=== PATIENT | male | born 1950 | race Caucasian/White ===

== ENCOUNTER 2024-07-30 09:39 | Emergency (ER) | payer OTHER ==
[~2024-07-30] VITALS: Ht 180.3 cm; Wt 101.3 kg
[~2024-07-30 09:39] MED LIST: ATEN100T PO; BENA40TA71 PO; DIGO0.2570 PO; DIPH2.5T73 OR; FURO20TA3 PO; METF-370 OR
[2024-07-30] MEDS: SODIUM CHLORIDE 0.9% 1,000 ML IV ONE (10:39)
--- NOTE | 2024-07-30 10:47 | ED.PDOC ---
General HPI Comments 73Y M with PMHx DM, HTN, and BPH presents to ED for chief complaint testicle pain x3days with swelling. Pt states symptoms originally began on left testicle but now the right testicle is also tender and swollen. Pt denies all urinary symptoms, fever, and chills. Pt has previously self-catheterized himself due to inability to void urine. Pt had similar symptoms 20yrs ago. Pt is being f/u by PCP at [facility], but is not being seen by a urologist. Chief Complaint: Testicle Pain Time Seen by MD: 10:17 Primary Care Provider: SULAIMAN WITH SPRECKELS Reviewed notes: Nurses Notes, Medications, Allergies Allergies: Coded Allergies: NO KNOWN ALLERGIES (Unverified , 07/01/12) Home Meds Reported Medications Diphenoxylate W/ Atropine (Lomotil) 2.5 Mg Tab, 2.5 MG OR Q6HP 07/01/12 Metformin Hydrochloride (Metformin Hcl) 500 Mg Tab, 500 MG OR DAILY 07/01/12 Digoxin (Digoxin) 0.25 Mg Tab, 0.25 MG PO DAILY 07/01/12 Atenolol (Atenolol) 100 Mg Tab, 100 MG PO DAILY 07/01/12 Furosemide (Furosemide) 20 Mg Tab, 20 MG PO DAILY 07/01/12 Benazepril Hcl (Benazepril Hcl) 40 Mg Tab, 40 MG PO DAILY 07/01/12 Information Source: Patient Mode of Arrival: Ambulatory Severity: Mild Inability to void: None Timing: Days Duration: Since onset Onset: Spontaneous Symptoms: None History of: BPH Location male: R Scrotum, L Scrotum Penile discharge: None Modifying factors: None associated signs and symptoms: Other Past Medical History PAST MEDICAL HISTORY: AFIB, DM, HTN Past Medical History (Other): BPH Surgical History: Denies all surgeries Family History Family History: Unknown Social History Smoker: Non-Smoker Alcohol: Occasionally Drugs: Denies Drug Use Lives In: Home Constitutional: denies: chills, diaphoresis, fatigue, fever, malaise, sweats, weakness, others EENTM: denies: blurred vision, double vision, ear bleeding, ear discharge, ear drainage, ear pain, ear ringing, eye pain, eye redness, hearing loss, mouth pain, mouth swelling, nasal discharge, nose bleeding, nose congestion, nose pain, photophobia, tearing, throat pain, throat swelling, voice changes, others Respiratory: denies: cough, hemoptysis, orthopnea, SOB at rest, shortness of breath, SOB with excertion, stridor, wheezing, others Cardiovascular: denies: chest pain, dizzy spells, diaphoresis, Dyspnea on exertion, edema, irregular heart beat, left arm pain, lightheadedness, palpitations, PND, syncope, others Gastrointestinal: denies: abdomen distended, abdominal pain, blood streaked bowels, constipated, diarrhea, dysphagia, difficulty swallowing, hematemesis, melena, nausea, poor appetite, poor fluid intake, rectal bleeding, rectal pain, vomiting, others Genitourinary: reports: testicle pain, testicle swelling; denies: burning, dysuria, flank pain, frequency, hematuria, incontinence, penile discharge, penile sore, pain, urgency, others Neurological: denies: dizziness, fainting, headache, left sided numbness, left sided weakness, numbness, paresthesia, pre-existing deficit, right sided numbness, right sided weakness, seizure, speech problems, tingling, tremors, weakness, others Musculoskeletal: denies: back pain, gout, joint pain, joint swelling, muscle pain, muscle stiffness, neck pain, others Integumetry: denies: bruises, change in color, change in hair/nails, dryness, laceration, lesions, lumps, rash, wounds, others Allergic/Immunocompromised: denies: Difficulty Healing, Frequent Infections, Hives, Itching, others Hematologic/Lymphatic: denies: anemia, blood clots, easy bleeding, easy bruising, swollen glands, others Endocrine: denies: excessive hunger, excessive sweating, excessive thirst, excessive urination, flushing, intolerance to cold, intolerance to heat, unexplained weight gain, unexplained weight loss, others Psychiatric: denies: anxiety, bipolar disorder, depression, hopeless, panic disorder, schizophrenia, sleepless, suicidal, others All Other Systems: Reviewed and Negative Physical Exam General Appearance: Moderate Distress, Obese HEENT: Normal ENT Inspection, PERRL/EOMI, Pharynx Normal, TMs Normal Neck: Full Range of Motion, Non-Tender, Normal, Normal Inspection Respiratory: Chest Non-Tender, Lungs Clear, No Accessory Muscle Use, No Res piratory Distress, Normal Breath Sounds Cardiovascular: No Edema, No JVD, No Murmur, No Gallop, Normal Peripheral Pulses, Regular Rate/Rhythm Breast Exam: Deferred Gastrointestinal: No Organomegaly, Non Tender, No Pulsatile Mass, Normal Bowel Sounds, Soft, Other (Protuberant abdomen) Genitalia: Epididymis, Scrotum, Testicle, Other (Swollen red inflamed indurated mostly left side) Pelvic: Deferred Rectal: Deferred Extremities: No calf tenderness, Normal capillary refill, Normal inspection, Normal range of motion, Non-tender, No pedal edema Musculoskeletal : Apperance: Normal Neurologic: Alert, harvest field ticketer II-XII nml as Tested, Motor Weakness, Normal Affect, Normal Mood, No Sensory Deficits, Other (Difficulty to stand up) Cerebellar Function: NOT DONE Reflexes: NOT DONE Skin: Dry, Normal Color, Warm Peripheral Pulses: 1+ carotid (R), 1+ carotid (L) Lymphatic: No Adenopathy Was a procedure done? Was a procedure done?: No Differential Diagnosis Kidney stone (Female): N/A Kidney stone (Male): Pyelonephritis, Urolithiasis, Urinary tract infection Penile/Scrotal: Epidiymitis, Prostatitis, UTI, Hydrocele Urinary Problem (Male): Epididymitis, Prostatitis, Plelonephritis, UTI, Other (Orchitis) Urinary Problem (Female): N/A X-Ray, Labs, Meds, VS Vital Signs Date Time Temp Pulse Resp B/P (MAP) Pulse Ox O2 Delivery O2 Flow Rate FiO2 07/30/24 17:32 98.3 73 18 105/67 (80) 97 98.3 07/30/24 15:07 63 18 106/62 (77) 98 07/30/24 13:09 61 17 124/74 (91) 97 07/30/24 11:07 98.5 87 17 121/49 (73) 97 98.5 07/30/24 10:08 102 18 97 Room Air 07/30/24 10:08 98.8 102 18 124/77 (93) 97 98.8 07/30/24 09:48 99.2 99 16 138/57 (84) 97 Lab Test 07/30/24 16:12 07/30/24 11:13 Range/Units Urine Color Light-orange Yellow Urine Clarity Ex.turbid Clear Urine pH 7.0 5.0-9.0 Urine Specific [place] 1.017 1.001-1.035 Urine Protein 2+ H Negative Urine Ketones Negative Negative Urine Blood 2+ H Negative /uL Urine Nitrite Negative Negative Urine Bilirubin Negative Negative Urine Urobilinogen Normal Negative mg/dL Urine Leukocyte Esterase 3+ Negative /uL Urine RBC 179 0 - 3 /hpf Urine WBC 395 0 - 3 /hpf Urine WBC Clumps Present None Seen /hpf Urine Squamous Epithelial Cells Few <5 /hpf Urine Bacteria Few H None Seen /hpf Urine Mucus Few None Seen Urine Glucose Normal Normal mg/dL White Blood Count 10.9 H 4.4-10.8 10^3/uL Red Blood Count 4.02 L 4.5-5.90 10^6/uL Hemoglobin 12.0 L 13.5-17.5 g/dL Hematocrit 36.7 L 41.0-53.0 % Mean Corpuscular Volume 91.2 80.0-100.0 fL Mean Corpuscular Hemoglobin 29.9 28.0-32.0 pg Mean Corpuscular Hemoglobin Concent 32.8 32.0-36.0 g/dL Red Cell Distribution Width 16.1 H 11.8-14.3 % Platelet Count 155 140-450 10^3/uL Mean Platelet Volume 8.6 6.9-10.8 fL Neutrophils (%) (Auto) 85.8 H 37.0-80.0 % Lymphocytes (%) (Auto) 5.1 L 10.0-50.0 % Monocytes (%) (Auto) 8.0 0.0-12.0 % Eosinophils (%) (Auto) 0.5 0.0-7.0 % Basophils (%) (Auto) 0.6 0.0-2.0 % Neutrophils # (Auto) 9.3 H 1.6-8.6 10 ^3/uL Lymphocytes # (Auto) 0.6 0.4-5.4 10 ^3/uL Monocytes # (Auto) 0.9 0-1.3 10 ^3/uL Eosinophils # (Auto) 0.1 0-0.8 10 ^3/uL Basophils # (Auto) 0.1 0-0.2 10 ^3/uL Nucleated Red Blood Cells 0.1 % Sodium Level 140 136-145 mmol/L Potassium Level 3.7 3.5-5.1 mmol/L Chloride Level 106 98-107 mmol/L Carbon Dioxide Level 26 20-31 mmol/L Anion Gap 8 5-15 Blood Urea Nitrogen 16 9-23 mg/dL Creatinine 0.94 0.700-1.30 mg/dL Glomerular Filtration Rate Calc 87 >90 mL/min BUN/Creatinine Ratio 17.0 10.0-20.0 Serum Glucose 131 H 74-106 mg/dL Calcium Level 10.2 8.7-10.4 mg/dL Magnesium Level 1.6 1.6-2.6 mg/dL Total Bilirubin 2.1 H 0.2-1.0 mg/dL Aspartate Amino Transferase (AST) 9 L 13-40 U/L Alanine Aminotransferase (ALT) 9 7-40 U/L Alkaline Phosphatase 77 46-116 U/L Total Protein 6.8 5.7-8.2 g/dL Albumin 4.2 3.2-4.8 g/dL Lipase 27 12-53 U/L Current Medications Medications (Trade) Dose Ordered Sig/Tiara Route Start Time Stop Time Status Last Admin Sodium Chloride 500 ml @ 500 mls/hr Q1H ONCE IVB 07/30/24 10:30 07/30/24 11:29 DC 07/30/24 11:09 Ketorolac Tromethamine (Toradol Injection) 30 mg ONCE ONCE IV 07/30/24 12:15 07/30/24 12:16 DC 07/30/24 12:40 Ceftriaxone Sodium 50 ml @ 100 mls/hr ONCE ONCE IV 07/30/24 12:15 07/30/24 12:44 DC 07/30/24 12:40 [place] [id number] Ph: [phone] DIAGNOSTIC IMAGING Diagnostic Imaging Report : [id number] Signed PATIENT: SKYE BATES ACCT: [id number] UNIT: [id number] : 1950 LOC: ER ROOM / BED: / AGE / SEX: 73 / M ADM STATUS: REG ER SERVICE 1026 ORDERING PHYSICIAN: CYNTHIA CERDA MD PROCEDURE(s): TESUS - TESTICULAR ULTRASOUND REASON: Orchitis epididymitis ORDER NUMBER(s): [id number], ACCESSION NUMBER(s): [id number] ULTRASOUND OF SCROTUM AND CONTENTS. INDICATION: Orchitis epididymitis COMPARISON: None TECHNIQUE: Multiple real-time grayscale sonographic and color and duplex Doppler images of the scrotum and its contents were obtained. FINDINGS: The right testicle measures 4.3 x 3.3 x 3.2 cm. The left testicle measures 4.3 x 3.3 x 3.2 cm. Both testicles demonstrate homogeneous echotexture without evidence of focal lesions. The right epididymis measures 1.0 cm. The left epididymis measures 1.5 cm. Left epididymal head cyst measures 0.5 cm. Subsequent color and duplex Doppler interrogation of the testes demonstrated symmetric normal vascular flow to both testicles. Increased vascularity to the left testicle and left epididymis. Septated left hydrocele. Trace right hydrocele. Diffuse scrotal wall thickening. IMPRESSION: Findings are suggestive of left orchitis/ epididymitis. Probably infected small left hydrocele. ATED BY: MARK MEYER MD DICTATED DATE/TIME: 07/30/24 1133 SIGNED BY: MARK MEYER MD SIGNED DATE/TIME: 07/30/24 1133 CC: X-Ray, Labs, Meds, VS Comment Course in emergency department eventful patient came in complaining of swollen testicles with pain eight painful is self cauterization Blood pressure 138/57 CBC [id number] with 85.8% neutrophils H&H 12 and 36 CMP blood sugar is 131 Magnesium 1.6 Bilirubin 2.1 Lipase 27 Urine pending The ultrasound shows orchitis and epididymitis and small hydrocele Patient will be discharged home Dr. 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, managed as type 2 Disposition: 01 HOME / SELF CARE / HOMELESS Condition: Fair Additional Instructions: Push fluids local heat mostly in the area of the swelling and you need to follow up with your PCP and your urologist Your doctor has been consulted e-Prescriptions Cefdinir (Cefdinir) 300 Mg Cap 1 CAP PO BID for 10 Days, #20 CAP Prov: CYNTHIA ECRDA MD 07/30/24 Diclofenac Potassium (Diclofenac Potassium) 50 Mg Tab 1 TAB PO TIDP for 5 Days, #15 TAB Prov: CYNTHIA CERDA MD 07/30/24 Discharged With: Self Critical Care Note Critical Care Time?: No Stability Stability form required: No Heart Score Heart Score: Heart Score Response (Comments) Value History N/A 0 EKG N/A 0 Age >65 2 Risk Factors 1 or 2 risk factors 1 Troponin N/A 0 Total 3 I personally scribed for CYNTHIA CERDA MD ([email or web address]) on 07/30/24 at 10:47. Electronically submitted by Faye Brice ([email or web address]). I personally scribed for CYNTHIA CERDA MD ([email or web address]) on 07/30/24 at 11:39. Electronically submitted by Faye Brice ([email or web address]). CYNTHIA CERDA MD Jul 30, 2024 10:47
[2024-07-30] MEDS: SODIUM CHLORIDE 0.9% 500 ML IVB ONE (11:09)
[2024-07-30 11:33] LABS: Basophils # (auto) 0.1 10 ^3/uL (0-0.2); Basophils % (auto) 0.6 % (0.0-2.0); Eosinophils # (auto) 0.1 10 ^3/uL (0-0.8); Eosinophils % (auto) 0.5 % (0.0-7.0); Hematocrit 36.7 % (41.0-53.0); Lymphocytes # (auto) 0.6 10 ^3/uL (0.4-5.4); Lymphocytes % (auto) 5.1 % (10.0-50.0); Mean Corpuscular Hemoglobin 29.9 pg (28.0-32.0); Mean Corpuscular Hgb Conc. 32.8 g/dL (32.0-36.0); Mean Corpuscular Volume 91.2 fL (80.0-100.0); Monocytes # (auto) 0.9 10 ^3/uL (0-1.3); Neutrophils # (auto) 9.3 10 ^3/uL (1.6-8.6); Neutrophils % (auto) 85.8 % (37.0-80.0); Nucleated Red Blood Cells % 0.1 %; Platelet Count (auto) 155 10^3/uL (140-450); Red Blood Cells 4.02 10^6/uL (4.5-5.90); Red Cell Distribution Width 16.1 % (11.8-14.3); White Blood Cell 10.9 10^3/uL (4.4-10.8)
--- NOTE | 2024-07-30 11:37 | DVH ---
ULTRASOUND OF SCROTUM AND CONTENTS. INDICATION: Orchitis epididymitis COMPARISON: None TECHNIQUE: Multiple real-time grayscale sonographic and color and duplex Doppler images of the scrotu m and its contents were obtained. FINDINGS: The right testicle measures 4.3 x 3.3 x 3.2 cm. The left testicle measures 4.3 x 3.3 x 3.2 cm. Both testicles demonstrate homogeneous echotexture without evidence of focal lesions. The right epididymis measures 1.0 cm. The left epididymis measures 1.5 cm. Left epididymal head cyst measures 0.5 cm. Subsequent color and duplex Doppler interrogation of the testes demonstrated symmetric normal vascula r flow to both testicles. Increased vascularity to the left testicle and left epididymis. Septated left hydrocele. Trace right hydrocele. Diffuse scrotal wall thickening. IMPRESSION: Findings are suggestive of left orchitis/ epididymitis. Probably infected small left hydrocele.
[2024-07-30 12:07] LABS: Albumin 4.2 g/dL (3.2-4.8); Alkaline Phosphatase 77 U/L (46-116); Anion Gap 8 (5-15); Blood Urea Nitrogen 16 mg/dL (9-23); Calcium 10.2 mg/dL (8.7-10.4); Carbon Dioxide 26 mmol/L (20-31); Chloride 106 mmol/L (98-107); Lipase 27 U/L (12-53); Magnesium 1.6 mg/dL (1.6-2.6); Potassium 3.7 mmol/L (3.5-5.1); Sodium 140 mmol/L (136-145); Total Protein 6.8 g/dL (5.7-8.2)
[2024-07-30 12:11] LABS: Alanine Aminotransferase 9 U/L (7-40); Aspartate Aminotransferase 9 U/L (13-40); Bilirubin, Total 2.1 mg/dL (0.2-1.0); Glucose 131 mg/dL (74-106)
[2024-07-30] MEDS: cefTRIAXone 1GM/50ML D5W 50 ML IV ONE (12:40)
[2024-07-30] MEDS: KETOROLAC TROMETH 30 MG/ML 1ML VIAL IV ONE (12:40)
[2024-07-30 16:35] LABS: Urine Bacteria FEW /hpf (None Seen); Urine Blood 2+ /uL (Negative); Urine Clarity Ex.Turbid (Clear); Urine Color Light-Orange (Yellow); Urine Mucus FEW (None Seen); Urine Protein, UAD 2+ (Negative); Urine Specific Gravity 1.017 (1.001-1.035); Urine Squamous Epithelial Cell FEW /hpf (<5); Urine Urobilinogen Normal (Negative); Urine WBC 395 /hpf (0 - 3); Urine WBC Clumps PRESENT /hpf (None Seen)
[2024-07-30 17:32] VITALS: BP 105/67; PULSE 73; RESP 18; TEMP 98.3; O2SAT 97
[2024-07-30] MEDS ORDERED: CEFD300C2 PO (17:40)
[2024-07-30] MEDS ORDERED: DICL50TA2 PO (17:40)
== END 2024-07-30 17:46 | disposition home or self-care (01) ==
LOC: ER 09:39
DX: N45.3 Epididymo-orchitis (principal); N39.0 Urinary tract infection, site not specified; E13.8 Other specified diabetes mellitus with unspecified complications; I10 Essential (primary) hypertension; I48.91 Unspecified atrial fibrillation; Z79.84 Long term (current) use of oral hypoglycemic drugs; Z79.899 Other long term (current) drug therapy
CPT/HCPCS: 36415; 76870; 80053; 81001; 83690; 83735; 85025; 96361; 96365; 96375; 99285; J0696; J1885; J7040